=== PATIENT | male | born 1970 | race Hispanic/Latino ===

== ENCOUNTER 2023-12-19 17:14 | Emergency (ER) | payer MEDICAID ==
[~2023-12-19] VITALS: Ht 165.1 cm; Wt 81.6 kg
[2023-12-19] MEDS ORDERED: ketOROlac 30MG VIAL (30MG/ML) IVP ONE (18:30)
[2023-12-19] MEDS ORDERED: ondanSETRON 4MG INJ IVP ONE (18:30)
[2023-12-19] MEDS ORDERED: 0.9%NACL 1000ML 1,000 ML IV ONE (18:30)
[2023-12-19 18:55] LABS: BASOPHILS # (AUTO) 0.01 K/uL (0.00-0.20); BASOPHILS % (AUTO) 0.2 % (0.0-5.0); EOSINOPHILS # (AUTO) 0.02 K/uL (0.00-0.70); EOSINOPHILS % (AUTO) 0.4 % (0.0-8.0); HEMATOCRIT 30.6 % (42-54); IMMATURE GRANULOCYTE ABSOLUTE 0.03 K/uL (0-1); LYMPHOCYTES % (AUTO) 17.4 % (21.0-51.0); MEAN CORPUSCULAR HEMOGLOBIN 31.4 pg (27.0-33.0); MEAN CORPUSCULAR HGB CONC 35.3 g/dL (32.0-36.0); MONOCYTES # (AUTO) 0.6 K/uL (0.1-1.0); MONOCYTES % (AUTO) 10.8 % (3.0-13.0); NEUTROPHILS # (AUTO) 3.9 K/uL (1.8-7.7); NEUTROPHILS % (AUTO) 70.7 % (40.0-77.0); PLATELET COUNT (AUTO) 258 K/uL (130-400); RED BLOOD CELL COUNT(AUTO) 3.44 MIL/uL (4.50-6.20); RED CELL DISTRIBUTION WIDTH 13.5 % (11.0-15.5); WHITE BLOOD COUNT (AUTO) 5.5 K/uL (4.8-10.8)
[2023-12-19 19:04] LABS: CREATININE 0.8 mg/dL (0.5-1.3)
[2023-12-19 19:09] LABS: ALBUMIN 3.3 g/dL (3.5-5.0); BILIRUBIN,TOTAL 0.3 mg/dL (0.2-1.0); TOTAL PROTEIN, SERUM 7.1 g/dL (6.0-8.3)
[2023-12-19 19:25] VITALS: BP 111/70; PULSE 71; RESP 18; TEMP 98.3; O2SAT 98
[2023-12-19] MEDS: ondanSETRON ODT 4MG TAB SL ONE (19:27)
[2023-12-19] MEDS ORDERED: FAMO-136 PO (19:31)
[2023-12-19] MEDS ORDERED: ONDA-243 PO (19:31)
== END 2023-12-19 19:49 | disposition home or self-care (01) ==
LOC: EDH 17:14
DX: R11.2 Nausea with vomiting, unspecified (principal); F32.A Depression, unspecified; F41.9 Anxiety disorder, unspecified
CPT/HCPCS: 36415; 80053; 85025; J1885; J2405; J7030